=== PATIENT | female | born 1945 | race African-American/Black ===

== ENCOUNTER 2018-01-18 01:40 | Emergency (ER) | payer OTHER ==
[~2018-01-18] VITALS: Ht 154.9 cm; Wt 77.1 kg
[2018-01-18 02:27] LABS: Basophils # (auto) 0 uL; Basophils % (auto) 0.5 % (0.0-2.0); Eosinophils # (auto) 0.1 uL; Eosinophils % (auto) 0.8 % (0.0-7.0); Hematocrit 38.2 % (36.0-46.0); Hemoglobin 12.2 g/dL (12.2-16.2); Lymphocytes # (auto) 3.1 uL; Lymphocytes % (auto) 37.7 % (10.0-50.0); Mean Corpuscular Volume 84.3 fL (80.0-100.0); Monocytes # (auto) 0.7 uL; Neutrophils # (auto) 4.3 uL; Nucleated Red Blood Cells % 0.2 %; Platelet Count (auto) 168 10^3/uL (140-450); Red Blood Cells 4.53 10^6/uL (4.0-5.20); Red Cell Distribution Width 14.3 % (11.8-14.3); White Blood Cell 8.1 10^3/uL (4.4-10.8)
[2018-01-18 02:48] LABS: Albumin 3.6 g/dL (3.4-5.0); BUN/Creatinine Ratio 10.3; Calcium 8.8 mg/dL (8.5-10.1); Potassium 4.1 mmol/L (3.5-5.1)
[2018-01-18 02:51] LABS: Bilirubin, Total 0.2 mg/dL (0.2-1.0)
[2018-01-18] MEDS ORDERED: ONDANSETRON HCL 4 MG/2 ML VIAL ONE (03:12)
[2018-01-18] MEDS ORDERED: ONDANSETRON HCL 4 MG/2 ML VIAL IV ONE ×2 (03:30→09:45)
[2018-01-18 04:28] LABS: Prothrombin Time 10.7 sec (9.27-12.13)
[2018-01-18 04:31] LABS: Magnesium 1.7 mg/dL (1.6-2.6)
[2018-01-18] MEDS ORDERED: ASPirin 81 mg TAB PO ONE (05:00)
[2018-01-18] MEDS ORDERED: FUROSEMIDE 20 MG/2 ML VIAL IV ONE (05:00)
[2018-01-18] MEDS ORDERED: IOHEXOL 300 MG/ML 100ML BOTTLE IJ ONE (07:00)
[2018-01-18 09:04] LABS: Alcohol, Urine < 3.0 mg/dL (0-5); Amphetamine Screen, Urine NEGATIVE (NEGATIVE); Barbiturate Scree,Urine NEGATIVE (NEGATIVE); Benzodiazephine Screen, Urine NEGATIVE (NEGATIVE); Cannabinoid Screen, Urine NEGATIVE (NEGATIVE); Cocaine Screen, Urine NEGATIVE (NEGATIVE); Opiate Scree,Urine NEGATIVE (NEGATIVE); Phencyclidine Screen, Urine NEGATIVE (NEGATIVE)
[2018-01-18 09:25] VITALS: BP 101/67
[2018-01-18] MEDS ORDERED: MORPHINE SULF INJ 2 MG/ML SYRINGE 1ML IV ONE (09:45)
== END 2018-01-18 07:20 | disposition short-term general hospital (02) ==
LOC: ER 01:43
DX: R42 Dizziness and giddiness (principal); R11.2 Nausea with vomiting, unspecified; R79.89 Other specified abnormal findings of blood chemistry; E11.9 Type 2 diabetes mellitus without complications; Z88.8 Allergy status to other drugs, medicaments and biological substances; V49.69XA Unspecified car occupant injured in collision with other motor vehicles in traffic accident, initial encounter; Y93.89 Activity, other specified; Y99.8 Other external cause status; Y92.488 Other paved roadways as the place of occurrence of the external cause
CPT/HCPCS: 36415; 70450; 71045; 71260; 80053; 80307; 80320; 82962; 83735; 83880; 84443; 84484; 85025; 85610; 85730; 93005; 94761; 96374; 96375; 99285; J1940; J2270; J2405; Q9967